=== PATIENT | male | born 1985 | race Two or more races ===

== ENCOUNTER 2016-04-15 16:41 | Inpatient (IN) | payer BC, MEDICAID ==
[~2016-04-15] VITALS: Ht 167.6 cm; Wt 134.6 kg
[2016-04-15 17:22] LABS: Urine Bilirubin Negative (Negative); Urine Blood Negative /uL (Negative); Urine Color Yellow (Yellow); Urine Glucose Normal (Normal); Urine Ketone Negative (Negative); Urine Nitrite Negative (Negative); Urine RBC 1 /hpf (0 - 3); Urine Urobilinogen Normal (Negative)
[2016-04-15 17:37] LABS: Albumin 3.7 g/dL (3.4-5.0); BUN/Creatinine Ratio 16.9; Bilirubin, Total 0.5 mg/dL (0.2-1.0); Calcium 8.5 mg/dL (8.5-10.1); Potassium 4.2 mmol/L (3.5-5.1); Total Protein 7.2 g/dL (6.4-8.2)
[2016-04-15] MEDS ORDERED: SODIUM CHLORIDE 0.9% 1,000 ML IVB ONE (18:39)
[2016-04-15] MEDS ORDERED: ASPirin 81 mg TAB PO ONE (18:45)
[2016-04-15 18:56] LABS: Basophils # (auto) 0.1 uL; Basophils % (auto) 0.5 % (0.0-2.0); DEFINITIVE VIEW TRANSMISSION; Eosinophils # (auto) 0.3 uL; Eosinophils % (auto) 2.5 % (0.0-7.0); Hematocrit 41.8 % (41.0-53.0); Hemoglobin 13.1 g/dL (13.5-17.5); Lymphocytes # (auto) 1.9 uL; Lymphocytes % (auto) 15.3 % (10.0-50.0); Mean Corpuscular Hemoglobin 24.4 pg (28.0-32.0); Mean Corpuscular Hgb Conc. 31.2 g/dL (32.0-36.0); Mean Corpuscular Volume 78.3 fL (80.0-100.0); Mean Platelet Volume 9.7 fL (7.4-10.4); Monocytes # (auto) 0.9 uL; Monocytes % (auto) 7.1 % (0.0-12.0); Neutrophils # (auto) 9.3 uL; Neutrophils % (auto) 74.6 % (37.0-80.0); Platelet Count (auto) 228 10^3/uL (140-450); Red Cell Distribution Width 16.5 % (11.6-16.0); White Blood Cell 12.5 10^3/uL (4.4-10.8)
[2016-04-15] MEDS ORDERED: LACTULOSE 20Gm/30ML SOLN PO PRN (21:45)
[2016-04-15] MEDS ORDERED: NITROGLYCERIN 0.4 MG SL TAB SL PRN (21:45)
[2016-04-15] MEDS ORDERED: MORPHINE SULF INJ 2 MG/ML SYRINGE 1ML IV PRN (21:45)
[2016-04-15 23:44] VITALS: BP 124/80
[2016-04-16] VITALS (8 sets, daily range): BP systolic 101–123; BP diastolic 45–71
[2016-04-16] MEDS: METOPROLOL TARTRATE 25 MG TAB PO SCH ×3 (00:15→20:31)
[2016-04-16] MEDS ORDERED: PANT40TA2 PO (01:26)
[2016-04-16] MEDS ORDERED: METO25TA5 PO (01:26)
[2016-04-16 05:51] LABS: Basophils # (auto) 0.1 uL; Basophils % (auto) 0.6 % (0.0-2.0); DEFINITIVE VIEW TRANSMISSION; Eosinophils # (auto) 0.4 uL; Eosinophils % (auto) 3.7 % (0.0-7.0); Hematocrit 38.2 % (41.0-53.0); Hemoglobin 11.8 g/dL (13.5-17.5); Lymphocytes # (auto) 2.4 uL; Lymphocytes % (auto) 24.8 % (10.0-50.0); Mean Corpuscular Hemoglobin 24.1 pg (28.0-32.0); Mean Corpuscular Hgb Conc. 30.9 g/dL (32.0-36.0); Mean Corpuscular Volume 78.1 fL (80.0-100.0); Monocytes # (auto) 0.8 uL; Neutrophils # (auto) 6.1 uL; Neutrophils % (auto) 62.9 % (37.0-80.0); Platelet Count (auto) 223 10^3/uL (140-450); Red Cell Distribution Width 16.7 % (11.6-16.0); White Blood Cell 9.7 10^3/uL (4.4-10.8)
[2016-04-16 06:32] LABS: Albumin 3.1 g/dL (3.4-5.0); BUN/Creatinine Ratio 20.9; Bilirubin, Total 0.5 mg/dL (0.2-1.0); Calcium 7.9 mg/dL (8.5-10.1); Potassium 4.6 mmol/L (3.5-5.1); Total Protein 6.4 g/dL (6.4-8.2)
[2016-04-16] MEDS ORDERED: INFLUENZA QUAD 2016-2017 0.5 ML SYRG IM ONE (07:00)
[2016-04-16] MEDS: SODIUM CHLOR 0.9% PF (SALINE LOCK) 10ML VIAL IV SCH ×4 (07:05→20:29)
[2016-04-16] MEDS ORDERED: cefTRIAXone 1GM/50ML D5W 50 ML IV SCH (09:00)
[2016-04-16] MEDS: ASPirin 81 mg TAB PO SCH (09:40)
[2016-04-16] MEDS: PANTOPRAZOLE SODIUM 40 MG/10 ML VIAL IV SCH (09:41)
[2016-04-16] MEDS ORDERED: ENALAPRIL MALEATE 10 MG TAB PO SCH (10:00)
[2016-04-16] MEDS ORDERED: ENOXAPARIN SOD 40 MG/0.4 ML SYRINGE SC SCH (10:00)
[2016-04-16] MEDS: NITROGLYCERIN 0.2MG/HR TOPICAL PATCH TD SCH (10:00)
[2016-04-16] MEDS: SOD CHL 0.45% 1,000 ML IV SCH (14:00)
[2016-04-16 14:45] LABS: INR 1.07 (0.9-1.15); Partial Thromboplastin Time 25.6 sec (22.64-33.71)
[2016-04-16] MEDS: cefTRIAXone 1GM/50ML D5W 50 ML IV SCH ×2 (20:30)
[2016-04-16] MEDS: ATORVASTATIN 20 MG TAB PO SCH ×2 (20:31)
[2016-04-16] MEDS: ENOXAPARIN SOD 40 MG/0.4 ML SYRINGE SC SCH (20:32)
[2016-04-17] MEDS: SODIUM CHLOR 0.9% PF (SALINE LOCK) 10ML VIAL IV SCH ×3 (05:35→22:26)
[2016-04-17 05:53] VITALS: BP 118/55
[2016-04-17 08:00] VITALS: BP 103/57
[2016-04-17] MEDS: ASPirin 81 mg TAB PO SCH (10:00)
[2016-04-17] MEDS: ENOXAPARIN SOD 40 MG/0.4 ML SYRINGE SC SCH ×2 (10:00→22:00)
[2016-04-17] MEDS: NITROGLYCERIN 0.2MG/HR TOPICAL PATCH TD SCH (10:00)
[2016-04-17] MEDS: PANTOPRAZOLE SODIUM 40 MG/10 ML VIAL IV SCH (10:00)
[2016-04-17] MEDS: METOPROLOL TARTRATE 25 MG TAB PO SCH ×2 (10:00→22:27)
[2016-04-17 12:52] VITALS: BP 129/79
[2016-04-17] MEDS: SOD CHL 0.45% 1,000 ML IV SCH (14:00)
[2016-04-17 16:00] VITALS: BP 107/65
[2016-04-17 22:00] VITALS: BP 104/56
[2016-04-17] MEDS ORDERED: ENOXAPARIN SOD 150 MG/1 ML SYRINGE SC SCH ×2 (22:00)
[2016-04-17] MEDS: ATORVASTATIN 20 MG TAB PO SCH (22:27)
== END 2016-04-18 01:52 | disposition short-term general hospital (02) | DRG 281 ==
LOC: ER 16:53 → TELE 16:54 → TELE-CENTR 23:15
PROVIDERS: ADMIT Family Medicine; ATTEND Family Medicine
PROC: 5A09457 Assistance with Respiratory Ventilation, 24-96 Consecutive Hours, Continuous Positive Airway Pressure (ICD-10-PCS; principal; 2016-04-16)
DX: I21.4 Non-ST elevation (NSTEMI) myocardial infarction (principal); I42.9 Cardiomyopathy, unspecified; I24.9 Acute ischemic heart disease, unspecified; I11.0 Hypertensive heart disease with heart failure; E66.01 Morbid (severe) obesity due to excess calories; G47.33 Obstructive sleep apnea (adult) (pediatric); K21.9 Gastro-esophageal reflux disease without esophagitis; J20.9 Acute bronchitis, unspecified; I50.9 Heart failure, unspecified; Z68.42 Body mass index [BMI] 45.0-49.9, adult; Z90.89 Acquired absence of other organs; Z23 Encounter for immunization
CPT/HCPCS: 36415; 71010; 80053; 81001; 83735; 84484; 85025; 85610; 85730; 93005; 93306; 94660; 94761; C9113; J0696

== ENCOUNTER 2022-05-21 10:36 | Emergency (ER) | payer BC, MEDICAID, OTHER ==
[~2022-05-21] VITALS: Ht 165.1 cm; Wt 130.0 kg
[~2022-05-21 10:36] MED LIST: METO25TA5 PO; PANT40TA2 PO
[2022-05-21 12:13] LABS: Basophils # (auto) 0 10 ^3/uL (0-0.2); Eosinophils # (auto) 0.2 10 ^3/uL (0-0.8); Hemoglobin 10.7 g/dL (13.5-17.5); Lymphocytes # (auto) 1.1 10 ^3/uL (0.4-5.4); Mean Corpuscular Hemoglobin 19.5 pg (28.0-32.0); Monocytes # (auto) 0.8 10 ^3/uL (0-1.3)
[2022-05-21 12:15] LABS: Basophils % (auto) 0.4 % (0.0-2.0); Eosinophils % (auto) 2.2 % (0.0-7.0); Hematocrit 36.1 % (41.0-53.0); Lymphocytes % (auto) 13.5 % (10.0-50.0); Mean Corpuscular Hgb Conc. 29.6 g/dL (32.0-36.0); Mean Corpuscular Volume 65.8 fL (80.0-100.0); Monocytes % (auto) 9.9 % (0.0-12.0); Neutrophils # (auto) 6.2 10 ^3/uL (1.6-8.6); Red Blood Cells 5.48 10^6/uL (4.5-5.90); White Blood Cell 8.4 10^3/uL (4.4-10.8)
[2022-05-21 13:25] LABS: Red Cell Distribution Width 21.4 % (11.8-14.3)
[2022-05-21] MEDS ORDERED: METOPROLOL TARTRATE 50 MG TAB PO ONE (13:45)
[2022-05-21 14:07] LABS: Albumin 3.8 g/dL (3.4-5.0); Calcium 8.5 mg/dL (8.5-10.1); Magnesium 2.3 mg/dL (1.6-2.6); Potassium 3.7 mmol/L (3.5-5.1)
[2022-05-21 14:10] LABS: BUN/Creatinine Ratio 21.7; Bilirubin, Total 0.2 mg/dL (0.2-1.0); Total Protein 7.2 g/dL (6.4-8.2)
[2022-05-21] MEDS ORDERED: ASPirin 325 MG TAB PO ONE (14:15)
[2022-05-21 16:49] VITALS: BP 118/65
== END 2022-05-21 17:09 | disposition admitted as inpatient to this hospital (09) ==
LOC: ER 10:36
DX: I21.9 Acute myocardial infarction, unspecified (principal); T82.897A Other specified complication of cardiac prosthetic devices, implants and grafts, initial encounter; K21.9 Gastro-esophageal reflux disease without esophagitis; I10 Essential (primary) hypertension; Z90.89 Acquired absence of other organs; Z98.890 Other specified postprocedural states
CPT/HCPCS: 36415; 71045; 80053; 83735; 83880; 84484; 85025; 93005; 99291

== ENCOUNTER 2022-08-30 13:02 | Inpatient (IN) | payer MEDICAID, OTHER ==
[~2022-08-30] VITALS: Ht 165.1 cm; Wt 138.6 kg
[2022-08-30 14:06] LABS: Basophils # (auto) 0.1 10 ^3/uL (0-0.2); Hemoglobin 12.6 g/dL (13.5-17.5); Lymphocytes # (auto) 1.3 10 ^3/uL (0.4-5.4); Neutrophils # (auto) 7.5 10 ^3/uL (1.6-8.6)
[2022-08-30 14:08] LABS: Basophils % (auto) 0.9 % (0.0-2.0); Eosinophils # (auto) 0.1 10 ^3/uL (0-0.8); Eosinophils % (auto) 1.4 % (0.0-7.0); Hematocrit 41.3 % (41.0-53.0); Lymphocytes % (auto) 12.9 % (10.0-50.0); Mean Corpuscular Hemoglobin 21.3 pg (28.0-32.0); Mean Corpuscular Hgb Conc. 30.4 g/dL (32.0-36.0); Mean Corpuscular Volume 69.9 fL (80.0-100.0); Monocytes % (auto) 10.3 % (0.0-12.0); Neutrophils % (auto) 74.5 % (37.0-80.0); Nucleated Red Blood Cells % 0.1 %
[2022-08-30 14:15] LABS: Red Cell Distribution Width 24.3 % (11.8-14.3)
[2022-08-30 14:23] LABS: Albumin 3.5 g/dL (3.4-5.0); Calcium 8.4 mg/dL (8.5-10.1); Magnesium 2.3 mg/dL (1.6-2.6); Potassium 3.9 mmol/L (3.5-5.1)
[2022-08-30 14:27] LABS: BUN/Creatinine Ratio 19.3 (10.0-20.0); Bilirubin, Total 0.3 mg/dL (0.2-1.0); Total Protein 6.8 g/dL (6.4-8.2)
[2022-08-30] MEDS ORDERED: ASPirin-EC 325mg tab PO ONE (15:30)
[2022-08-30] MEDS ORDERED: AMIODARONE 450mg/250ml AE 250 ML IV SCH (18:00)
[2022-08-30] MEDS ORDERED: AMIODARONE HCL 150 MG in D5W 5% 100 ML IV ONE (18:00)
[2022-08-30 21:00] LABS: Urine Bacteria NONE SEEN /hpf (None Seen); Urine Blood Negative /uL (Negative); Urine WBC <1 /hpf (0 - 3)
[2022-08-30] MEDS ORDERED: DOCUSATE SOD 100 MG CAP PO PRN (21:30)
[2022-08-30] MEDS ORDERED: MORPHINE SULFATE INJ 2 MG/ml SYRG IV PRN ×2 (21:30→22:30)
[2022-08-30] MEDS ORDERED: ONDANSETRON HCL 4 MG/2 ML VIAL IV PRN (21:30)
[2022-08-30] MEDS ORDERED: HYDROcodone-ACET 5/325MG TAB PO PRN (21:30)
[2022-08-30] MEDS: ATORVASTATIN 20 MG TAB PO SCH (22:22)
[2022-08-30] MEDS: FAMOTIDINE (10MG/ML) 2ML VL IV SCH (22:22)
[2022-08-30] MEDS: SODIUM CHLOR 0.9% PF (SALINE LOCK) 10ML VIAL/SYR IV SCH (22:23)
[2022-08-30] MEDS ORDERED: NITROGLYCERIN 0.4 MG SL TAB SL PRN (22:30)
[2022-08-30] MEDS ORDERED: ALBUTEROL SULF 2.5 MG/0.5ML(0.5%) NEB SOLN NEB PRN (22:30)
[2022-08-31] MEDS: AMIODARONE 450mg/250ml AE 250 ML IV SCH ×3 (01:15→20:56)
[2022-08-31 02:25] VITALS: BP 127/52
[2022-08-31] MEDS ORDERED: METO-289 PO (04:51)
[2022-08-31] MEDS ORDERED: FURO1TAB31 PO (04:52)
[2022-08-31] MEDS ORDERED: COLC1TAB3 PO (04:52)
[2022-08-31] MEDS ORDERED: POTA10TA51 PO (04:53)
[2022-08-31] MEDS ORDERED: FERR1TAB31 PO (04:54)
[2022-08-31] MEDS ORDERED: DISO100C4 PO (04:54)
[2022-08-31 05:43] LABS: Eosinophils # (auto) 0.2 10 ^3/uL (0-0.8); Lymphocytes # (auto) 2.1 10 ^3/uL (0.4-5.4)
[2022-08-31 05:44] LABS: Albumin 3.3 g/dL (3.4-5.0); Calcium 8.1 mg/dL (8.5-10.1); Potassium 3.8 mmol/L (3.5-5.1)
[2022-08-31 05:46] LABS: BUN/Creatinine Ratio 16.7 (10.0-20.0); Bilirubin, Total 0.3 mg/dL (0.2-1.0); Total Protein 6.1 g/dL (6.4-8.2)
[2022-08-31 05:47] LABS: Basophils # (auto) 0.1 10 ^3/uL (0-0.2); Basophils % (auto) 0.7 % (0.0-2.0); Hematocrit 39.7 % (41.0-53.0); Hemoglobin 12.2 g/dL (13.5-17.5); Lymphocytes % (auto) 23.7 % (10.0-50.0); Mean Corpuscular Hemoglobin 21.4 pg (28.0-32.0); Mean Corpuscular Hgb Conc. 30.9 g/dL (32.0-36.0); Mean Corpuscular Volume 69.3 fL (80.0-100.0); Monocytes # (auto) 0.9 10 ^3/uL (0-1.3); Monocytes % (auto) 9.7 % (0.0-12.0); Neutrophils # (auto) 5.8 10 ^3/uL (1.6-8.6); Neutrophils % (auto) 63.9 % (37.0-80.0); Red Blood Cells 5.73 10^6/uL (4.5-5.90)
[2022-08-31] MEDS: SODIUM CHLOR 0.9% PF (SALINE LOCK) 10ML VIAL/SYR IV SCH ×3 (06:02→21:08)
[2022-08-31 06:09] LABS: Red Cell Distribution Width 24.9 % (11.8-14.3)
[2022-08-31 06:51] VITALS: BP 124/54
[2022-08-31 08:32] VITALS: BP 152/50
[2022-08-31 09:40] LABS: Alcohol, Urine < 3.0 mg/dL (0-10); Amphetamine Screen, Urine NEGATIVE (NEGATIVE); Barbiturate Scree,Urine NEGATIVE (NEGATIVE); Benzodiazephine Screen, Urine NEGATIVE (NEGATIVE); Cannabinoid Screen, Urine NEGATIVE (NEGATIVE); Cocaine Screen, Urine NEGATIVE (NEGATIVE); Opiate Scree,Urine NEGATIVE (NEGATIVE); Phencyclidine Screen, Urine NEGATIVE (NEGATIVE)
[2022-08-31] MEDS: ASPirin 81 mg TAB PO SCH (09:47)
[2022-08-31] MEDS: FAMOTIDINE (10MG/ML) 2ML VL IV SCH ×2 (09:47→21:05)
[2022-08-31] MEDS: AMIODARONE HCL 200 MG TAB PO SCH ×2 (09:47→21:06)
[2022-08-31] MEDS ORDERED: FUROSEMIDE 20 MG TAB PO ONE (12:45)
[2022-08-31] MEDS ORDERED: POTASSIUM CHL 10 Meq TABLET PO ONE (12:45)
[2022-08-31] MEDS ORDERED: ENOXAPARIN SOD 40 MG/0.4 ML SYRINGE SC ONE (15:15)
[2022-08-31 16:17] VITALS: BP 133/80
[2022-08-31 20:00] VITALS: BP 100/50
[2022-08-31] MEDS: ATORVASTATIN 20 MG TAB PO SCH (21:06)
[2022-08-31 22:00] VITALS: BP 100/50
[2022-09-01 05:00] VITALS: BP 94/48
[2022-09-01] MEDS: SODIUM CHLOR 0.9% PF (SALINE LOCK) 10ML VIAL/SYR IV SCH ×3 (06:00→22:00)
[2022-09-01 07:06] LABS: Eosinophils # (auto) 0.2 10 ^3/uL (0-0.8); Lymphocytes # (auto) 1.9 10 ^3/uL (0.4-5.4); Mean Corpuscular Hemoglobin 21.7 pg (28.0-32.0); Monocytes # (auto) 1.1 10 ^3/uL (0-1.3); Neutrophils # (auto) 6.1 10 ^3/uL (1.6-8.6); Nucleated Red Blood Cells % 0.1 %; White Blood Cell 9.3 10^3/uL (4.4-10.8)
[2022-09-01 07:08] LABS: Basophils # (auto) 0.1 10 ^3/uL (0-0.2); Basophils % (auto) 0.6 % (0.0-2.0); Eosinophils % (auto) 1.7 % (0.0-7.0); Hematocrit 38.8 % (41.0-53.0); Hemoglobin 12.1 g/dL (13.5-17.5); Lymphocytes % (auto) 20.5 % (10.0-50.0); Mean Corpuscular Hgb Conc. 31.3 g/dL (32.0-36.0); Mean Corpuscular Volume 69.4 fL (80.0-100.0); Monocytes % (auto) 11.5 % (0.0-12.0); Neutrophils % (auto) 65.7 % (37.0-80.0); Red Blood Cells 5.59 10^6/uL (4.5-5.90)
[2022-09-01 07:11] LABS: Red Cell Distribution Width 24.6 % (11.8-14.3)
[2022-09-01 07:37] LABS: BUN/Creatinine Ratio 17.4 (10.0-20.0); Calcium 8.2 mg/dL (8.5-10.1); Magnesium 2.3 mg/dL (1.6-2.6); Potassium 3.7 mmol/L (3.5-5.1)
[2022-09-01 09:00] VITALS: BP 105/51
[2022-09-01] MEDS: FAMOTIDINE (10MG/ML) 2ML VL IV SCH ×2 (09:57→20:32)
[2022-09-01] MEDS: AMIODARONE HCL 200 MG TAB PO SCH ×2 (09:58→20:32)
[2022-09-01] MEDS: ASPirin 81 mg TAB PO SCH (09:58)
[2022-09-01] MEDS: FUROSEMIDE 20 MG TAB PO SCH (09:59)
[2022-09-01] MEDS: POTASSIUM CHL 10 Meq TABLET PO SCH (10:00)
[2022-09-01 13:00] VITALS: BP 129/68
[2022-09-01] MEDS: AMIODARONE 450mg/250ml AE 250 ML IV SCH (13:53)
[2022-09-01] MEDS ORDERED: FERROUS SULFATE 325mg EC TAB PO ONE (14:00)
[2022-09-01] MEDS ORDERED: COLCHICINE 0.6 MG CAP PO ONE (14:00)
[2022-09-01 16:38] VITALS: BP 103/54
[2022-09-01] MEDS: ATORVASTATIN 20 MG TAB PO SCH (20:32)
[2022-09-01 22:00] VITALS: BP 110/53
[2022-09-02] MEDS: AMIODARONE 450mg/250ml AE 250 ML IV SCH ×2 (04:46→12:00)
[2022-09-02 05:00] VITALS: BP 90/46
[2022-09-02] MEDS: SODIUM CHLOR 0.9% PF (SALINE LOCK) 10ML VIAL/SYR IV SCH ×3 (06:43→21:37)
[2022-09-02 09:00] VITALS: BP 98/60
[2022-09-02] MEDS: FAMOTIDINE (10MG/ML) 2ML VL IV SCH ×2 (10:00→21:35)
[2022-09-02] MEDS: ASPirin 81 mg TAB PO SCH (10:03)
[2022-09-02] MEDS: FUROSEMIDE 20 MG TAB PO SCH (10:03)
[2022-09-02] MEDS: COLCHICINE 0.6 MG CAP PO SCH (10:03)
[2022-09-02] MEDS: AMIODARONE HCL 200 MG TAB PO SCH ×2 (10:04→21:36)
[2022-09-02] MEDS: POTASSIUM CHL 10 Meq TABLET PO SCH (10:04)
[2022-09-02 13:00] VITALS: BP 101/63
[2022-09-02 17:00] VITALS: BP 97/64
[2022-09-02] MEDS: ACETAMINOPHEN 325 MG TAB PO PRN (21:36)
[2022-09-02] MEDS: ATORVASTATIN 20 MG TAB PO SCH (21:36)
[2022-09-02 22:00] VITALS: BP 111/71
[2022-09-03 00:26] VITALS: BP 111/71
[2022-09-03 02:21] LABS: Basophils # (auto) 0.1 10 ^3/uL (0-0.2); Basophils % (auto) 0.5 % (0.0-2.0); Eosinophils # (auto) 0.1 10 ^3/uL (0-0.8); Lymphocytes # (auto) 1.9 10 ^3/uL (0.4-5.4); Mean Corpuscular Volume 70.8 fL (80.0-100.0)
[2022-09-03 02:23] LABS: Eosinophils % (auto) 0.5 % (0.0-7.0); Hematocrit 42.3 % (41.0-53.0); Hemoglobin 12.8 g/dL (13.5-17.5); Lymphocytes % (auto) 15.8 % (10.0-50.0); Mean Corpuscular Hemoglobin 21.5 pg (28.0-32.0); Mean Corpuscular Hgb Conc. 30.3 g/dL (32.0-36.0); Monocytes # (auto) 1.6 10 ^3/uL (0-1.3); Neutrophils # (auto) 8.5 10 ^3/uL (1.6-8.6); Neutrophils % (auto) 70.2 % (37.0-80.0); Red Blood Cells 5.97 10^6/uL (4.5-5.90); White Blood Cell 12.2 10^3/uL (4.4-10.8)
[2022-09-03 02:24] LABS: Red Cell Distribution Width 24.7 % (11.8-14.3)
[2022-09-03 05:00] VITALS: BP 99/42
[2022-09-03] MEDS: SODIUM CHLOR 0.9% PF (SALINE LOCK) 10ML VIAL/SYR IV SCH ×3 (05:34→22:06)
[2022-09-03 09:00] VITALS: BP 102/58
[2022-09-03] MEDS: FAMOTIDINE (10MG/ML) 2ML VL IV SCH ×2 (09:14→22:06)
[2022-09-03] MEDS: AMIODARONE HCL 200 MG TAB PO SCH ×2 (09:15→22:07)
[2022-09-03] MEDS: FUROSEMIDE 20 MG TAB PO SCH (09:15)
[2022-09-03] MEDS: POTASSIUM CHL 10 Meq TABLET PO SCH (09:15)
[2022-09-03] MEDS: ASPirin 81 mg TAB PO SCH (09:16)
[2022-09-03] MEDS: COLCHICINE 0.6 MG CAP PO SCH (09:16)
[2022-09-03] MEDS: ACETAMINOPHEN 325 MG TAB PO PRN ×2 (11:39→18:07)
[2022-09-03 13:00] VITALS: BP 110/63
[2022-09-03] MEDS: PIPERACILLIN-TAZOB 3.375GM 100 ML IV SCH ×2 (14:32→22:06)
[2022-09-03 16:52] VITALS: BP 131/74
[2022-09-03 21:47] VITALS: BP 100/58
[2022-09-03] MEDS: ATORVASTATIN 20 MG TAB PO SCH (22:07)
[2022-09-04 05:00] VITALS: BP 103/65
[2022-09-04] MEDS: PIPERACILLIN-TAZOB 3.375GM 100 ML IV SCH ×3 (05:38→21:06)
[2022-09-04] MEDS: SODIUM CHLOR 0.9% PF (SALINE LOCK) 10ML VIAL/SYR IV SCH ×3 (05:39→21:07)
[2022-09-04] MEDS: ACETAMINOPHEN 325 MG TAB PO PRN ×2 (05:39→14:57)
[2022-09-04 08:56] VITALS: BP 126/67
[2022-09-04] MEDS: APIXABAN 5 MG TAB PO SCH ×2 (09:34→21:07)
[2022-09-04] MEDS: FUROSEMIDE 20 MG TAB PO SCH (09:35)
[2022-09-04] MEDS: AMIODARONE HCL 200 MG TAB PO SCH ×2 (09:35→21:07)
[2022-09-04] MEDS: FAMOTIDINE (10MG/ML) 2ML VL IV SCH ×2 (09:35→21:06)
[2022-09-04] MEDS: COLCHICINE 0.6 MG CAP PO SCH (09:35)
[2022-09-04] MEDS: POTASSIUM CHL 10 Meq TABLET PO SCH (09:35)
[2022-09-04] MEDS: ASPirin 81 mg TAB PO SCH (09:35)
[2022-09-04 13:00] VITALS: BP 93/57
[2022-09-04 17:00] VITALS: BP 103/60
[2022-09-04] MEDS: ATORVASTATIN 20 MG TAB PO SCH (21:07)
[2022-09-04 22:00] VITALS: BP 131/65
[2022-09-05 05:00] VITALS: BP 132/81
[2022-09-05] MEDS: PIPERACILLIN-TAZOB 3.375GM 100 ML IV SCH (05:12)
[2022-09-05] MEDS: SODIUM CHLOR 0.9% PF (SALINE LOCK) 10ML VIAL/SYR IV SCH (05:12)
[2022-09-05 09:00] VITALS: BP 103/47
[2022-09-05] MEDS: AMIODARONE HCL 200 MG TAB PO SCH (09:24)
[2022-09-05] MEDS: ASPirin 81 mg TAB PO SCH (09:24)
[2022-09-05] MEDS: POTASSIUM CHL 10 Meq TABLET PO SCH (09:24)
[2022-09-05] MEDS: COLCHICINE 0.6 MG CAP PO SCH (09:24)
[2022-09-05] MEDS: APIXABAN 5 MG TAB PO SCH (09:25)
[2022-09-05] MEDS: FUROSEMIDE 20 MG TAB PO SCH (09:25)
[2022-09-05] MEDS ORDERED: APIX5TAB PO (09:43)
[2022-09-05] MEDS: FAMOTIDINE (10MG/ML) 2ML VL IV SCH (10:10)
[2022-09-05 10:42] VITALS: BP_SYST 110; BP_SYST 112; BP_DIAS 60
== END 2022-09-05 13:19 | disposition home or self-care (01) | DRG 197 ==
LOC: EDBD 13:02 → ER 13:02 → TELE 22:25 → TELE-WESTW 08-31 16:29
PROVIDERS: ADMIT Nurse Practitioner Family; ATTEND Family Medicine
PROC: 5A09357 Assistance with Respiratory Ventilation, Less than 24 Consecutive Hours, Continuous Positive Airway Pressure (ICD-10-PCS; principal; 2022-08-31)
PROC: 4B02XTZ Measurement of Cardiac Defibrillator, External Approach (ICD-10-PCS; 2022-08-31)
PROC: 5A09357 Assistance with Respiratory Ventilation, Less than 24 Consecutive Hours, Continuous Positive Airway Pressure (ICD-10-PCS; 2022-09-01)
PROC: 5A09357 Assistance with Respiratory Ventilation, Less than 24 Consecutive Hours, Continuous Positive Airway Pressure (ICD-10-PCS; 2022-09-02)
PROC: 5A09357 Assistance with Respiratory Ventilation, Less than 24 Consecutive Hours, Continuous Positive Airway Pressure (ICD-10-PCS; 2022-09-03)
PROC: 5A09357 Assistance with Respiratory Ventilation, Less than 24 Consecutive Hours, Continuous Positive Airway Pressure (ICD-10-PCS; 2022-09-04)
PROC: 5A09357 Assistance with Respiratory Ventilation, Less than 24 Consecutive Hours, Continuous Positive Airway Pressure (ICD-10-PCS; 2022-09-05)
DX: I82.612 Acute embolism and thrombosis of superficial veins of left upper extremity (principal); I49.01 Ventricular fibrillation; I42.1 Obstructive hypertrophic cardiomyopathy; I50.9 Heart failure, unspecified; I11.0 Hypertensive heart disease with heart failure; K21.9 Gastro-esophageal reflux disease without esophagitis; E66.01 Morbid (severe) obesity due to excess calories; K59.00 Constipation, unspecified; Z95.810 Presence of automatic (implantable) cardiac defibrillator; Z68.42 Body mass index [BMI] 45.0-49.9, adult; Z79.01 Long term (current) use of anticoagulants; Z79.899 Other long term (current) drug therapy; Z82.5 Family history of asthma and other chronic lower respiratory diseases
CPT/HCPCS: 36415; 71045; 80048; 80053; 80307; 81001; 83615; 83735; 83880; 84443; 84484; 85025; 87040; 87086; 93005; 93306; 93971; 94660; 96365; 96366; 96372; 99291; G0378; J2543; J3490; J7060

== ENCOUNTER → 2023-01-29 | Outpatient (CLI) | payer MEDICAID ==
[~2023-01-29] MED LIST changes: +APIX5TAB PO; +COLC1TAB3 PO; +DISO100C4 PO; +FERR1TAB31 PO; +FURO1TAB31 PO; +METO-289 PO; +POTA10TA51 PO
[2023-01-29 09:46] LABS: Eosinophils # (auto) 0.3 10 ^3/uL (0-0.8); Hemoglobin 14.7 g/dL (13.5-17.5); Lymphocytes # (auto) 1.4 10 ^3/uL (0.4-5.4); Monocytes # (auto) 0.8 10 ^3/uL (0-1.3); Nucleated Red Blood Cells % 0.1 %
[2023-01-29 09:48] LABS: Basophils # (auto) 0 10 ^3/uL (0-0.2); Basophils % (auto) 0.5 % (0.0-2.0); Eosinophils % (auto) 3.5 % (0.0-7.0); Lymphocytes % (auto) 17.4 % (10.0-50.0); Mean Corpuscular Hemoglobin 25.7 pg (28.0-32.0); Mean Corpuscular Hgb Conc. 32.6 g/dL (32.0-36.0); Monocytes % (auto) 10.2 % (0.0-12.0); Neutrophils # (auto) 5.4 10 ^3/uL (1.6-8.6); Neutrophils % (auto) 68.4 % (37.0-80.0); Red Blood Cells 5.69 10^6/uL (4.5-5.90)
[2023-01-29 10:10] LABS: Urine Bacteria NONE SEEN /hpf (None Seen); Urine Blood Negative /uL (Negative); Urine Clarity Clear (Clear); Urine Color Yellow (Yellow); Urine Protein, UAD Negative (Negative); Urine Specific Gravity 1.025 (1.001-1.035); Urine Urobilinogen Normal (Negative); Urine WBC <1 /hpf (0 - 3); Urine pH 5.5 (5.0-8.0)
[2023-01-29 10:25] LABS: Alanine Aminotransferase 42 U/L (7-40); Albumin 4.4 g/dL (3.2-4.8); Alkaline Phosphatase 118 U/L (46-116); Anion Gap 6 (5-15); Aspartate Aminotransferase 21 U/L (13-40); BUN/Creatinine Ratio 16.5 (10.0-20.0); Blood Urea Nitrogen 13 mg/dL (9-23); Calcium 8.9 mg/dL (8.5-10.1); Carbon Dioxide 29 mmol/L (20-30); Chloride 102 mmol/L (98-107); Glucose 86 mg/dL (74-106); LDL Cholesterol 83 mg/dL (< 100); Potassium 3.6 mmol/L (3.5-5.1); Sodium 137 mmol/L (136-145); Triglycerides 77 mg/dL (< 150)
[2023-01-29 10:26] LABS: Bilirubin, Total 0.4 mg/dL (0.2-1.0); Cholesterol 131 mg/dL (< 200); HDL Cholesterol 37 mg/dL (40-59)
[2023-01-29 11:45] LABS: Total Protein < 2.0 g/dL (5.7-8.2)
== END | disposition home or self-care (01) ==
LOC: LAB 09:21
PROVIDERS: ATTEND Nurse Practitioner
DX: I10 Essential (primary) hypertension (principal); E78.5 Hyperlipidemia, unspecified; E03.9 Hypothyroidism, unspecified; R73.9 Hyperglycemia, unspecified
CPT/HCPCS: 36415; 80053; 80061; 81001; 83036; 84443; 85025